=== PATIENT | male | born 1990 | race Caucasian/White ===

== ENCOUNTER 2023-01-09 08:02 | Emergency (ER) | payer BC ==
[2023-01-09 08:07] VITALS: TEMP 98
[2023-01-09] MEDS ORDERED: MORPHINE SULFATE 4 MG/ML SYRINGE IV STA (08:16)
[2023-01-09] MEDS ORDERED: ONDANSETRON 4 MG/2 ML VIAL IVP STA (08:16)
[2023-01-09] MEDS ORDERED: FAMOTIDINE 20 MG/2 ML VIAL IV STA (08:17)
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
[2023-01-09] MEDS ORDERED: SODIUM CHLORIDE 0.9% 1,000 ML IV STA ×2 (08:31)
[2023-01-09 08:32] LABS: Basophils % (A) 0 %; Eosinophils # (A) 0.1 k/uL (0-0.7); Eosinophils % (A) 1 %; HCT 46.8 % (39.0-53.0); HGB 16.4 gm/dL (13.0-17.5); Lymphocytes # (A) 1.6 k/uL (1.0-4.8); Lymphocytes % (A) 12 %; MCH 32.3 pg (25.0-35.0); MCV 92.2 fL (80.0-100.0); Mean Platelet Volume 8.7; Monocytes # (A) 0.5 k/uL (0-1.0); Monocytes % (A) 4 %; Neutrophils # (A) 10.4 k/uL (1.3-7.7); Neutrophils % (A) 82 %; Platelet Count 224 k/uL (150-450); RBC 5.07 m/uL (4.30-5.90); RDW 12.2 % (11.5-15.5); WBC 12.7 k/uL (3.8-10.6)
--- NOTE | 2023-01-09 08:33 | XR ---
EXAMINATION TYPE: XR chest 2V DATE OF EXAM: 01/09/2023 COMPARISON: NONE HISTORY: Chest pain. TECHNIQUE: Frontal and lateral views of the chest are obtained. FINDINGS: Overlying EKG leads are seen. There is no focal air space opacity, pleural effusion, or pne umothorax seen. The cardiac silhouette size is within normal limits. The osseous structures are in tact. IMPRESSION: No acute cardiopulmonary process.
[2023-01-09 08:44] LABS: ALT 595 U/L (4-49); AST 348 U/L (17-59); African American GFR (CKD) >90 (>60 ml/min/1.73 sqM); Albumin 5.1 g/dL (3.5-5.0); Alkaline Phosphatase 159 U/L (38-126); Amylase 60 U/L (30-110); Anion Gap 17 mmol/L; Blood Urea Nitrogen 16 mg/dL (9-20); Calcium 10.1 mg/dL (8.4-10.2); Carbon Dioxide 21 mmol/L (22-30); Chloride 104 mmol/L (98-107); Glucose 114 mg/dL (74-99); Lipase 117 U/L (23-300); Non-African American GFR(CKD) >90 (>60 ml/min/1.73 sqM); Potassium 3.9 mmol/L (3.5-5.1); Sodium 142 mmol/L (137-145); Total Bilirubin 6.9 mg/dL (0.2-1.3); Total Protein 8.3 g/dL (6.3-8.2)
--- NOTE | 2023-01-09 08:44 | XR ---
EXAMINATION TYPE: XR abdomen 1V DATE OF EXAM: 01/09/2023 8:29 AM CLINICAL HISTORY: Right sided pain with nausea. TECHNIQUE: Two Upright KUB images of the abdomen are obtained. COMPARISON: None. FINDINGS: Some paucity of small bowel gas. Gas seen in nondistended stomach. Scattered gas is seen in non-distended colon. There is no visceromegaly, pneumoperitoneum, or abnormal calcification apprecia marylu. The lung bases are clear and the osseous structures are intact. IMPRESSION: Overall nonobstructive bowel gas pattern.
[2023-01-09 08:45] LABS: Prothrombin Time 10.3 sec (9.0-12.0)
[2023-01-09 08:58] VITALS: RESP 18
[2023-01-09] MEDS ORDERED: HYDROmorphone 1 MG/ML 1 ML SYRINGE IVP STA ×2 (09:10→10:59)
--- NOTE | 2023-01-09 09:31 | US ---
EXAMINATION TYPE: US gallbladder DATE OF EXAM: 01/09/2023 COMPARISON: NONE CLINICAL INDICATION: Male, 32 years old with history of pain; RUQ pain, nausea/vomiting TECHNIQUE: Multiple sonographic images of the right upper quadrant are obtained. FINDINGS: EXAM MEASUREMENTS: Liver Length: 15.9 cm Gallbladder Wall: 0.3 cm CBD: 0.9 cm Right Kidney: 11.7 x 5.3 x 5.1 cm Pancreas: Obscured by bowel gas Liver: wnl Gallbladder: Extensive stones packing the lumen of the gallbladder and obscuring the posterior wall. No evidence gallbladder wall thickening or surrounding fluid. Evidence for sonographic Bolanos's sign: yes CBD: dilated with possible stone Right Kidney: no evidence of hydronephrosis IMPRESSION: 1. Ultrasound findings concerning for choledocholithiasis with a 7 mm bile duct stone. Correlate with alkaline phosphatase and bilirubin levels. 2. Extensive stones packing the lumen of the gallbladder. Positive sonographic Bolanos's sign could re flect referred pain. No wall thickening or surrounding fluid is seen to clearly indicate acute cholec ystitis by ultrasound. Follow-up recommended if concern for early acute cholecystitis.
[2023-01-09 10:08] VITALS: BP 105/65; PULSE 58
== END 2023-01-09 11:07 | disposition other institution (70) ==
LOC: EC 08:02
DX: K80.20 Calculus of gallbladder without cholecystitis without obstruction (principal); F17.200 Nicotine dependence, unspecified, uncomplicated; F12.90 Cannabis use, unspecified, uncomplicated
CPT/HCPCS: 36415; 93005; 85379; 80053; 82150; 83690; 83735; 84484; 85025; 85610; 85730; 71046; 74018; 76705; 99285; 96374; 96375 ×3; 96376; 96361 ×2; J2270; J2405; J1170